=== PATIENT | male | born 1985 | race Caucasian/White ===

== ENCOUNTER 2018-11-12 12:47 | Emergency (ER) | payer OTHER ==
[2018-11-12] MEDS ORDERED: Sodium Chloride 0.9% 1000 ML 1,000 ML ONE ×2 (13:06→14:30)
[2018-11-12] MEDS ORDERED: BABY ASPIRIN 81 MG CHEW ONE (13:06)
[2018-11-12] MEDS: Sodium Chloride 0.9% 1000 ML 1,000 ML IV STA ×2 (13:07→14:37)
[2018-11-12] MEDS: BABY ASPIRIN 81 MG CHEW PO ONE (13:07)
--- NOTE | 2018-11-12 13:09 | ERPHSYRPT ---
- History of Present Illness Time Seen by Provider: 11/12/18 12:58 Source: patient Exam Limitations: no limitations Patient Subjective Stated Complaint: Pt states "I had a coughing fit at work and I vomited and my chest is hurting. My chest started to hurt last night and I have been coughing for 3 weeks or so." Triage Nursing Assessment: Pt presented through the front and placed in room 6. Pt alert and oriented X 3, skin pwd. Pt ambulates with an uprgith steady gait , able to speak in clear full sentences. PT in no apparant respiratory distress. pt uncontrolably shaking. Physician History: This is a 33-year-old white male with history of Crohn's, anxiety, bipolar, ADHD , spinal stenosis, Patient arrives with complaint of sharp chest pain pain since this morning associated with shortness of breath she states she's been coughing for 3 weeks he states he's been having some vomiting today he states he had sharp pains in his left arm pain radiates around to his back. Past medical history includes Crohn's, anxiety, bipolar, ADHD, spinal stenosis, tear in his right shoulder. Past surgical history includes shoulder surgery Social history chews tobacco Timing/Duration: today, other (coughing for 3 weeks,, pain in his left arm radiating to his chest and back described as sharpToday) Modifying Factors: Improves With: nothing Associated Symptoms: nausea, vomiting, shortness of breath, cough, chest pain, malaise, No abdominal pain, No heartburn, No diaphoresis, No chills, No fever, No headaches, No loss of appetite, No rash, No syncope, No seizure Allergies/Adverse Reactions: venom-honey bee [bee venom (honey bee)] Allergy (Severe, Verified 03/11/15 18:49 ) throat closes.... uses epi pen venom-wasp [Wasp Venom] Allergy (Severe, Verified 03/11/15 18:49) anaphylactic... uses epi pen latex [Latex] Allergy (Mild, Verified 03/11/15 18:49) sulfamethoxazole [From Bactrim] Allergy (Mild, Verified 03/11/15 18:49) trimethoprim [From Bactrim] Allergy (Mild, Verified 03/11/15 18:49) Home Medications: Fluticasone Propionate [Flonase NASAL] 16 gm NS 1HRPRIOR 11/12/18 [History ] Lisinopril/Hydrochlorothiazide [Lisinopril-Hctz 20-12.5 mg Tab] 1 each PO DAILY 11/12/18 [History] Meloxicam [Mobic] 15 mg PO DAILY 11/12/18 [History] Trazodone HCl 50 mg [Desyrel 50 mg] 100 mg PO HS 11/12/18 [History] lamoTRIgine [Lamictal Xr] 100 mg PO BID 11/12/18 [History] Hx Tetanus, Diphtheria Vaccination/Date Given: No Hx Influenza Vaccination/Date Given: No Hx Pneumococcal Vaccination/Date Given: No Immunizations Up to Date: Yes - Review of Systems Constitutional: Malaise, No Fever, No Chills Eyes: No Symptoms Ears, Nose, & Throat: No Symptoms Respiratory: Cough, Dyspnea, No Wheezing Cardiac: Chest Pain (sharp chest pain radiating to back) Abdominal/Gastrointestinal: Nausea, Vomiting, No Abdominal Pain, No Diarrhea, No Constipation, No Hematemesis, No Hematochezia, No Melena, No Dysphagia, No Appetite Changes Genitourinary Symptoms: No Dysuria Musculoskeletal: No Back Pain, No Neck Pain Skin: No Rash Neurological: No Dizziness, No Focal Weakness, No Sensory Changes Psychological: No Symptoms Endocrine: No Symptoms All Other Systems: Reviewed and Negative - Past Medical History Pertinent Past Medical History: Yes Neurological History: Other ENT History: No Pertinent History Cardiac History: Hypertension Respiratory History: No Pertinent History Endocrine Medical History: No Pertinent History Musculoskeletal History: No Pertinent History GI Medical History: Crohns Disease History: No Pertinent History Psycho-Social History: Anxiety, Bipolar, Depression, Other Male Reproductive Disorders: No Pertinent History Other Medical History: adhd. SPINAL STENOSIS THAT PUTS PRESSURE DOWN ON HIS LEGS. TEAR IN HIS RIGHT SHOULDER - Past Surgical History Past Surgical History: Yes Neuro Surgical History: No Pertinent History Cardiac: No Pertinent History Respiratory: No Pertinent History Gastrointestinal: No Pertinent History Genitourinary: Other Musculoskeletal: Orthopedic Surgery Male Surgical History: No Pertinent History Other Surgical History: SHOULDER - Social History Smoking Status: Never smoker Exposure to second hand smoke: No Drug Use: none Patient Lives Alone: No - Nursing Vital Signs Nursing Vital Signs: Initial Vital Signs Temperature 98.6 F 11/12/18 12:48 Pulse Rate 102 H 11/12/18 12:48 Respiratory Rate 22 11/12/18 12:48 Blood Pressure 120/75 11/12/18 12:48 O2 Sat by Pulse Oximetry 97 11/12/18 12:48 Pain Scale Pain Intensity 0 - Physical Exam General Appearance: mild distress, alert Eye Exam: PERRL/EOMI, eyes nml inspection Ears, Nose, Throat Exam: normal ENT inspection, TMs normal, pharynx normal, moist mucous membranes Neck Exam: normal inspection, non-tender, supple, full range of motion Respiratory Exam: normal breath sounds, lungs clear, No respiratory distress Cardiovascular Exam: regular rate/rhythm, normal heart sounds, normal peripheral pulses, capillary refill <2 sec Gastrointestinal/Abdomen Exam: soft, normal bowel sounds, No tenderness, No mass Back Exam: normal inspection, normal range of motion, No CVA tenderness, No vertebral tenderness Extremity Exam: normal inspection, normal range of motion, pelvis stable Neurologic Exam: alert, oriented x 3, cooperative, 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 as tested, normal mood/affect, nml cerebellar function, nml station & gait, sensation nml, No motor deficits Skin Exam: normal color, warm, dry, No rash Lymphatic Exam: No adenopathy SpO2 Interpretation: normal (99%) SpO2: 99 - Course Nursing assessment & vital signs reviewed: Yes EKG Interpreted by Me: RATE (105 bpm), Sinus Tach, NORMAL AXIS, Other (EKG: Sinus tachycardia, 105 beats per minute, normal axis, no acute ST or T wave changes) - Radiology Exams Chest X-ray Interpretation: Discussed w/ radiologist (chest x-ray: Subtle left base infiltrate versus atelectasis) Ordered Tests: Active Orders 24 hr Category Date 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 11/12/18 13:03 Active EKG-ER Only STAT Care 11/12/18 13:02 Active IV Insertion STAT Care 11/12/18 13:02 Active Pulse Oximetry (ED) STAT Care 11/12/18 13:02 Active CHEST 1 VIEW (PORTABLE) Stat Exams 11/12/18 13:03 Completed AMYLASE Stat Lab 11/12/18 13:10 Completed BLOOD CULTURE Stat Lab 11/12/18 13:25 Received CBC W DIFF Stat Lab 11/12/18 13:10 Completed CMP Stat Lab 11/12/18 13:10 Completed D-DIMER QUANTITATION Stat Lab 11/12/18 13:10 Completed LIPASE Stat Lab 11/12/18 13:10 Completed Lactic Acid Stat Lab 11/12/18 13:39 Completed PROTIME WITH INR Stat Lab 11/12/18 13:10 Completed PTT Stat Lab 11/12/18 13:10 Completed TROPONIN Q3H Lab 11/12/18 13:10 Completed TROPONIN Q3H Lab 11/12/18 16:15 Completed TROPONIN Q3H Lab 11/12/18 19:15 Ordered TROPONIN Q3H Lab 11/12/18 22:15 Ordered TROPONIN Q3H Lab 11/13/18 01:15 Ordered VENOUS BLOOD GAS Stat Lab 11/12/18 13:39 Completed Medication Summary Discontinued Medications Generic Name Dose Route Start Last Admin Trade Name Freq PRN Reason Stop Dose Admin Aspirin 324 mg 11/12/18 13:02 11/12/18 13:07 Baby Aspirin 81 Mg Chew PO 11/12/18 13:03 324 mg STAT ONE Administration Aspirin Confirm 11/12/18 13:06 Baby Aspirin 81 Mg Chew Administered 11/12/18 13:07 Dose 324 mg .ROUTE .STK-MED ONE Sodium Chloride 1,000 mls @ 999 mls/hr 11/12/18 13:02 11/12/18 14:10 Sodium Chloride 0.9% 1000 Ml IV 11/12/18 14:02 Infused .Q1H1M STA Infusion Sodium Chloride Confirm 11/12/18 13:06 Sodium Chloride 0.9% 1000 Ml Administered 11/12/18 13:07 Dose 1,000 mls @ ud .ROUTE .STK-MED ONE Ceftriaxone Sodium/Dextrose 1 g in 50 mls @ 100 mls/hr 11/12/18 14:27 15:30 Rocephin 1 Gm-D5w 50 Ml Bag IV 11/12/18 14:56 Infused STAT STA Infusion Sodium Chloride 1,000 mls @ 999 mls/hr 11/12/18 14:28 11/12/18 15:50 Sodium Chloride 0.9% 1000 Ml IV 11/12/18 15:28 Infused .Q1H1M STA Infusion Sodium Chloride Confirm 11/12/18 14:30 Sodium Chloride 0.9% 1000 Ml Administered 11/12/18 14:31 Dose 1,000 mls @ ud .ROUTE .STK-MED ONE Ceftriaxone Sodium/Dextrose Confirm 11/12/18 14:30 Rocephin 1 Gm-D5w 50 Ml Bag Administered 11/12/18 14:31 Dose 1 g in 50 mls @ ud IV .STK-MED ONE Lab/Rad Data: Laboratory Result Diagrams 11/12/18 13:10 11/12/18 13:10 Laboratory Results 11/12/18 11/12/18 11/12/18 Range/Units 16:15 13:39 13:39 WBC (4.0-10.5) K/mm3 RBC (4.1-5.6) M/mm3 Hgb (12.5-18.0) gm/dl Hct (42-50) % MCV (78-100) fl MCH (26-32) pg MCHC (32-36) g/dl RDW (11.5-14.0) % Plt Count (150-450) K/mm3 MPV (6-9.5) fl Gran % (36.0-66.0) % Eos # (Auto) (0-0.5) Absolute Lymphs (auto) (1.0-4.6) Absolute Monos (auto) (0.0-1.3) Lymphocytes % (24.0-44.0) % Monocytes % (0.0-12.0) % Eosinophils % (0.00-5.0) % Basophils % (0.0-0.4) % Absolute Granulocytes (1.4-6.9) Basophils # (0-0.4) PT (8.83-12.87) SECONDS INR (0.8-3.0) APTT (24.1-36.1) SECONDS D-Dimer (215-500) ng/mL pO2/FiO2 Ratio 21.0 % VBG pH 7.37 (7.32-7.42) VBG pCO2 at Pat Temp 41 L (42-55) mm/Hg VBG pO2 at Pat Temp 46 H (25-40) mm/Hg VBG HCO3 23.7 (22-28) meq/L VBG O2 Sat ([place]) 88.0 L (95-100) VBG Base Excess -1.5 (-2.0-2.0) VBG Hemoglobin 11.9 VBG Carboxyhemoglobin 2.9 (0.0-6.9) % T HGB POC Potassium 4.1 (3.5-5.1) Sodium (137-145) mmol/L Potassium (3.5-5.1) mmol/L Chloride (98-107) mmol/L Carbon Dioxide (22-30) mmol/L Anion Gap (5-15) MEQ/L BUN (9-20) mg/dL Creatinine (0.66-1.25) mg/dL Estimated GFR ML/MIN Glucose (74-106) mg/dL Lactic Acid 1.7 (0.4-2.0) Calcium (8.4-10.2) mg/dL Total Bilirubin (0.2-1.3) mg/dL AST (17-59) U/L ALT (0-50) U/L Alkaline Phosphatase (38-126) U/L Troponin I < 0.012 (0.000-0.034) ng/mL Serum Total Protein (6.3-8.2) g/dL Albumin (3.5-5.0) g/dL Amylase (30-110) U/L Lipase (23-300) U/L 11/12/18 11/12/18 11/12/18 Range/Units 13:10 13:10 13:10 WBC (4.0-10.5) K/mm3 RBC (4.1-5.6) M/mm3 Hgb (12.5-18.0) gm/dl Hct (42-50) % MCV (78-100) fl MCH (26-32) pg MCHC (32-36) g/dl RDW (11.5-14.0) % Plt Count (150-450) K/mm3 MPV (6-9.5) fl Gran % (36.0-66.0) % Eos # (Auto) (0-0.5) Absolute Lymphs (auto) (1.0-4.6) Absolute Monos (auto) (0.0-1.3) Lymphocytes % (24.0-44.0) % Monocytes % (0.0-12.0) % Eosinophils % (0.00-5.0) % Basophils % (0.0-0.4) % Absolute Granulocytes (1.4-6.9) Basophils # (0-0.4) PT 12.0 (8.83-12.87) SECONDS INR 1.06 (0.8-3.0) APTT 31.1 (24.1-36.1) SECONDS D-Dimer < 215 L (215-500) ng/mL pO2/FiO2 Ratio % VBG pH (7.32-7.42) VBG pCO2 at Pat Temp (42-55) mm/Hg VBG pO2 at Pat Temp (25-40) mm/Hg VBG HCO3 (22-28) meq/L VBG O2 Sat ([place]) (95-100) VBG Base Excess (-2.0-2.0) VBG Hemoglobin VBG Carboxyhemoglobin (0.0-6.9) % T HGB POC Potassium (3.5-5.1) Sodium (137-145) mmol/L Potassium (3.5-5.1) mmol/L Chloride (98-107) mmol/L Carbon Dioxide (22-30) mmol/L Anion Gap (5-15) MEQ/L BUN (9-20) mg/dL Creatinine (0.66-1.25) mg/dL Estimated GFR ML/MIN Glucose (74-106) mg/dL Lactic Acid (0.4-2.0) Calcium (8.4-10.2) mg/dL Total Bilirubin (0.2-1.3) mg/dL AST (17-59) U/L ALT (0-50) U/L Alkaline Phosphatase (38-126) U/L Troponin I < 0.012 (0.000-0.034) ng/mL Serum Total Protein (6.3-8.2) g/dL Albumin (3.5-5.0) g/dL Amylase 106 (30-110) U/L Lipase 92 (23-300) U/L 11/12/18 11/12/18 Range/Units 13:10 13:10 WBC 7.1 (4.0-10.5) K/mm3 RBC 3.83 L (4.1-5.6) M/mm3 Hgb 12.3 L (12.5-18.0) gm/dl Hct 35.8 L (42-50) % MCV 93.5 (78-100) fl MCH 32.1 H (26-32) pg MCHC 34.4 (32-36) g/dl RDW 12.0 (11.5-14.0) % Plt Count 222 (150-450) K/mm3 MPV 9.9 H (6-9.5) fl Gran % 74.4 H (36.0-66.0) % Eos # (Auto) 0.02 (0-0.5) Absolute Lymphs (auto) 1.38 (1.0-4.6) Absolute Monos (auto) 0.38 (0.0-1.3) Lymphocytes % 19.6 L (24.0-44.0) % Monocytes % 5.4 (0.0-12.0) % Eosinophils % 0.3 (0.00-5.0) % Basophils % 0.3 (0.0-0.4) % Absolute Granulocytes 5.25 (1.4-6.9) Basophils # 0.02 (0-0.4) PT (8.83-12.87) SECONDS INR (0.8-3.0) APTT (24.1-36.1) SECONDS D-Dimer (215-500) ng/mL pO2/FiO2 Ratio % VBG pH (7.32-7.42) VBG pCO2 at Pat Temp (42-55) mm/Hg VBG pO2 at Pat Temp (25-40) mm/Hg VBG HCO3 (22-28) meq/L VBG O2 Sat ([place]) (95-100) VBG Base Excess (-2.0-2.0) VBG Hemoglobin VBG Carboxyhemoglobin (0.0-6.9) % T HGB POC Potassium (3.5-5.1) Sodium 140 (137-145) mmol/L Potassium 4.3 (3.5-5.1) mmol/L Chloride 104 (98-107) mmol/L Carbon Dioxide 22 (22-30) mmol/L Anion Gap 17.4 H (5-15) MEQ/L BUN 37 H (9-20) mg/dL Creatinine 1.86 H (0.66-1.25) mg/dL Estimated GFR 45.3 ML/MIN Glucose 120 H (74-106) mg/dL Lactic Acid (0.4-2.0) Calcium 10.3 H (8.4-10.2) mg/dL Total Bilirubin 1.10 (0.2-1.3) mg/dL AST 18 (17-59) U/L ALT 15 (0-50) U/L Alkaline Phosphatase 62 (38-126) U/L Troponin I (0.000-0.034) ng/mL Serum Total Protein 8.8 H (6.3-8.2) g/dL Albumin 5.1 H (3.5-5.0) g/dL Amylase (30-110) U/L Lipase (23-300) U/L - Progress Progress: improved Progress Note: 11/12/18 14:28 Patient was left lower lobe very small atelectasis versus infiltrate. Patient white count 7.1 hemoglobin 12.3 hematocrit 35.8 d-dimer less than 215 venous gases pH 7.3 7P CO2 is 41 chemistry remarkable for a BUN of 37 creatinine 1.86 glucose 120 troponin less than 0.12. Amylase lipase within normal limits electrolytes sodium 140 potassium 43 chloride 104 bicarbonate 22 EKG normal sinus rhythm normal EKG. Patient feeling better after 1 L of normal saline will give a second liter of normal saline Rocephin 1 g IV. Consider repeat troponin. . . . . 11/12/18 16:49 Patient's repeat troponin within normal limits will discharge patient - Departure Departure Disposition: Home Clinical Impression: Non-cardiac chest pain, Dehydration Pneumonia Qualifiers: Pneumonia type: due to unspecified organism Laterality: left Lung location: lower lobe of lung Qualified Code(s): J18.1 - Lobar pneumonia, unspecified organism Condition: Fair Critical Care Time: No Referrals: DOCTOR,NO FAMILY [NON-STAFF PHY W/O PRIVILEGES] - Additional Instructions: Return home. Plenty of fluids. Zithromax as prescribed. [place] as prescribed. Followup with your family . Return for acute distress or for severe symptoms. Prescriptions: Hydrocodone/APAP 5-325 Tab^^^ [[place] 5-325 Tablet^^^] 1 tab PO Q6HPRN PRN #10 tablet MDD 6 PRN Reason: Pain Azithromycin 250 mg [Zithromax 250 MG TABLET] 0 mg PO ZPACK #6 tablet
[2018-11-12 13:30] LABS: BASOPHIL % 0.3 % (0.0-0.4); Basophil (Absolute #) 0.02 (0-0.4); Eosinophil % 0.3 % (0.00-5.0); Eosinophil (Absolute #) 0.02 (0-0.5); Granulocyte Absolute (ANC) 5.25 (1.4-6.9); Granulocytes % 74.4 % (36.0-66.0); Hematocrit 35.8 % (42-50); Hemoglobin 12.3 gm/dl (12.5-18.0); Lymphocyte (Absolute #) 1.38 (1.0-4.6); Lymphocytes % 19.6 % (24.0-44.0); Mean Cell Volume 93.5 fl (78-100); Mean Corpuscular Hemoglobin 32.1 pg (26-32); Mean Corpuscular Hgb Concent. 34.4 g/dl (32-36); Mean Platelet Volume 9.9 fl (6-9.5); Monocyte (Absolute #) 0.38 (0.0-1.3); Monocytes % 5.4 % (0.0-12.0); Platelet Count 222 K/mm3 (150-450); Red Blood Count 3.83 M/mm3 (4.1-5.6); White Blood Count 7.1 K/mm3 (4.0-10.5)
--- NOTE | 2018-11-12 13:30 | XRAY ---
Indication: Cough 3 weeks. Chest pain. Comparison: March 25, 2012. Portable chest demonstrates new subtle left base infiltrate versus atelectasis. Remaining heart, right lung, and bony thorax normal.
[2018-11-12 13:37] LABS: INR 1.06 (0.8-3.0)
[2018-11-12 13:40] LABS: PTT 31.1 SECONDS (24.1-36.1)
[2018-11-12 13:41] LABS: AMYLASE 106 U/L (30-110)
[2018-11-12 13:43] LABS: ALBUMIN 5.1 g/dL (3.5-5.0); ANION GAP 17.4 MEQ/L (5-15); BILIRUBIN,TOTAL 1.1 mg/dL (0.2-1.3); Calcium 10.3 mg/dL (8.4-10.2); Creatinine 1 1.86 mg/dL (0.66-1.25); Potassium 4.3 mmol/L (3.5-5.1); Total Protein 8.8 g/dL (6.3-8.2)
[2018-11-12 13:47] LABS: VBG BASE EXCESS -1.5 (-2.0-2.0); VBG CARBOXYHEMOGLOBIN 2.9 % T HGB (0.0-6.9); VBG HCO3- 23.7 meq/L (22-28); VBG HEMOGLOBIN 11.9; VBG POTASSIUM 4.1 (3.5-5.1); VBG pH 7.37 (7.32-7.42)
[2018-11-12] MEDS ORDERED: ROCEPHIN 1 Gm-D5w 50 ml Bag** 1 G/50 ML IVPB IV ONE (14:30)
[2018-11-12] MEDS: ROCEPHIN 1 Gm-D5w 50 ml Bag** 1 G/50 ML IVPB IV STA (14:37)
[2018-11-12 17:30] VITALS: BP 131/83; PULSE 84; O2SAT 98
== END 2018-11-12 17:41 | disposition home or self-care (01) ==
LOC: ED 12:47
DX: R07.89 Other chest pain (principal); E86.0 Dehydration; J18.1 Lobar pneumonia, unspecified organism; K50.90 Crohn's disease, unspecified, without complications; F41.9 Anxiety disorder, unspecified; F31.9 Bipolar disorder, unspecified; M48.00 Spinal stenosis, site unspecified; I10 Essential (primary) hypertension; Z79.899 Other long term (current) drug therapy
CPT/HCPCS: 36000; 36415; 71045; 80053; 82150; 82805; 83605; 83690; 84484; 85025; 85379; 85610; 85730; 87040; 93005; 93041; 96360; 96361; 96365; 96374; 99285; J0696; A9270-GY